=== PATIENT | male | born 1985 | race Caucasian/White ===

== ENCOUNTER 2018-04-03 18:28 | Emergency (ER) | payer SELFPAY ==
[2018-04-03] MEDS ORDERED: MORPHINE 4 MG/ML SYR ONE (18:39)
[2018-04-03] MEDS ORDERED: ONDANSETRON 4 MG/2 ML VIAL ONE (18:40)
[2018-04-03] MEDS ORDERED: NA CHLORIDE 0.9% 1,000 ML ONE ×2 (18:40→20:33)
[2018-04-03 18:58] LABS: Absolute Lymphocytes (CBC) 3.7 K/uL (0.7-4.9); Absolute Neutrophil 5.9 K/uL (1.8-8.0); Basophils % 0.8 % (0-1.3); Eosinophils % 1.9 % (0-4.4); Hematocrit 44.5 % (39.6-49.0); Lymphocytes % 34.2 % (15.3-44.8); MCH 30.8 pg (27.0-35.0); Monocytes % 9.2 % (3.3-12.3); RBC Red Blood Cell Count 4.89 M/uL (4.33-5.43)
[2018-04-03 19:15] LABS: Potassium 3.4 mEq/L (3.6-5.0)
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
[2018-04-03] MEDS ORDERED: CEFTRIAXONE/SWI 1gm 1 GM/10 ML SYR ONE (20:33)
[2018-04-03 21:08] LABS: Barbiturates NEGATIVE (NEGATIVE); Benzodiazepines NEGATIVE (NEGATIVE); Cocaine NEGATIVE (NEGATIVE); Opiates NEGATIVE (NEGATIVE); Phencyclidine NEGATIVE (NEGATIVE); THC Cannibis POSITIVE (NEGATIVE)
[2018-04-03 21:19] LABS: METHAMPHETAM POSITIVE (NEGATIVE)
[2018-04-03 21:24] LABS: Urine Blood NEGATIVE (NEG); Urine Glucose NEGATIVE (NEG); Urine Protein TRACE (NEG); Urine Specific Gravity 1.015 (1.005-1.030)
== END 2018-04-03 21:16 | disposition home or self-care (01) ==
LOC: ER 18:28
DX: F55.8 Abuse of other non-psychoactive substances (principal); E87.6 Hypokalemia; J01.90 Acute sinusitis, unspecified; V28.4XXA Motorcycle driver injured in noncollision transport accident in traffic accident, initial encounter; F17.210 Nicotine dependence, cigarettes, uncomplicated
CPT/HCPCS: 36415; 70450; 71260; 72125; 74177; 80048; 80307; 81003; 85025; 86850; 86900; 86901; 96361; 96374; 96375; 99285; J0696; J2405; J7030; Q9967